=== PATIENT | female | born 1955 | race Caucasian/White ===

== ENCOUNTER → 2023-04-18 06:26 | Day surgery (SDC) | payer MEDICARE, OTHER, SELFPAY | LOC: GI 06:26 | PROVIDERS: ATTENDING PHYSICIAN Internal Medicine | DX: D12.3 Benign neoplasm of transverse colon (principal); K57.30 Diverticulosis of large intestine without perforation or abscess without bleeding; K64.4 Residual hemorrhoidal skin tags; K56.2 Volvulus; R19.7 Diarrhea, unspecified; R13.10 Dysphagia, unspecified; R12 Heartburn; Q39.9 Congenital malformation of esophagus, unspecified; K44.9 Diaphragmatic hernia without obstruction or gangrene; K25.9 Gastric ulcer, unspecified as acute or chronic, without hemorrhage or perforation; K22.2 Esophageal obstruction | CPT/HCPCS: 45380; 45381; 43239; 88305; 88342 ==

== ENCOUNTER → 2023-05-31 13:52 | Outpatient (REF) | payer MEDICARE, OTHER, SELFPAY | LOC: SDSPAT 13:52 | PROVIDERS: ATTENDING PHYSICIAN Surgery; FAMILY PHYSICIAN Family Medicine | DX: A63.0 Anogenital (venereal) warts (principal) | CPT/HCPCS: 36415; 93005 ==

== ENCOUNTER 2023-06-06 06:13 | Day surgery (SDC) | payer MEDICARE, OTHER, SELFPAY ==
[2023-05-31 14:09] VITALS: BMI 32.8
[2023-06-06] VITALS (9 sets, daily range): BP systolic 123–164; BP diastolic 61–99; BMI 32.8
[2023-06-06] MEDS: NORMOSOL-R 1000 IV (06:55)
[2023-06-06] MEDS: ROXICODONE 5 MG PO (10:18)
== END 2023-06-06 10:38 | disposition home or self-care (01) ==
LOC: SDS 06:13
PROVIDERS: ATTENDING PHYSICIAN Surgery; FAMILY PHYSICIAN Family Medicine
DX: A63.0 Anogenital (venereal) warts (principal)
CPT/HCPCS: 46922

== ENCOUNTER 2023-07-26 06:11 | Day surgery (SDC) | payer MEDICARE, OTHER, SELFPAY ==
[2023-07-26 10:39] VITALS: BMI 32.1
[2023-07-26 10:40] VITALS: BMI 32.1
[2023-07-26 10:41] VITALS: BP 147/74
[2023-07-26 13:22] VITALS: BP 130/74
[2023-07-26 13:30] VITALS: BP 147/82
[2023-07-26 13:45] VITALS: BP 163/140
[2023-07-26 13:54] VITALS: BP 161/69
== END 2023-07-26 14:07 | disposition home or self-care (01) ==
LOC: GI 06:11
PROVIDERS: ATTENDING PHYSICIAN Internal Medicine Gastroenterology
DX: D12.2 Benign neoplasm of ascending colon (principal); K64.0 First degree hemorrhoids
CPT/HCPCS: 45390; 45385; 88305

== ENCOUNTER → 2023-08-28 11:22 | Outpatient (REF) | payer MEDICARE, OTHER, SELFPAY ==
[2023-08-28 12:48] LABS: Blood Urea Nitrogen 16 mg/dl (7-17); Calcium 9.4 mg/dl (8.4-10.2); Carbon Dioxide 28 mmol/L (22-30); Chloride 104 mmol/L (98-107); Glucose 91 mg/dl (70-99); Potassium 4.3 mmol/L (3.5-5.1); Sodium 139 mmol/L (135-145); eGFR > 60.00
== END ==
LOC: REG 11:22
PROVIDERS: ATTENDING PHYSICIAN Nurse Practitioner Family; FAMILY PHYSICIAN Family Medicine
DX: K86.2 Cyst of pancreas (principal)
CPT/HCPCS: 36415; 80048

== ENCOUNTER → 2023-09-24 11:36 | Outpatient (REF) | payer MEDICARE, OTHER, SELFPAY | LOC: WDC 11:36 | PROVIDERS: ATTENDING PHYSICIAN Obstetrics & Gynecology Gynecology; FAMILY PHYSICIAN Family Medicine | DX: Z12.31 Encounter for screening mammogram for malignant neoplasm of breast (principal) | CPT/HCPCS: 77063; 77067 ==

== ENCOUNTER 2024-08-18 06:31 | Day surgery (SDC) | payer MEDICARE, OTHER, SELFPAY | END 2024-08-18 13:40 | disposition home or self-care (01) | LOC: GI 06:31 | PROVIDERS: ATTENDING PHYSICIAN Internal Medicine | DX: Z12.11 Encounter for screening for malignant neoplasm of colon (principal); K57.30 Diverticulosis of large intestine without perforation or abscess without bleeding; K64.9 Unspecified hemorrhoids; D12.2 Benign neoplasm of ascending colon; Z98.890 Other specified postprocedural states; Z86.0101 Personal history of adenomatous and serrated colon polyps | CPT/HCPCS: 45380; 88305 ==

== ENCOUNTER → 2024-09-14 15:12 | Outpatient (REF) | payer MEDICARE, OTHER, SELFPAY ==
[2024-09-14 15:46] LABS: Hematocrit 40.8 % (37.0-47.0); Hemoglobin 13.8 g/dL (12.0-16.0); Mean Corp Hgb Conc. 33.8 g/dL (33.0-37.0); Mean Corpuscular Volume 95.1 fL (81.0-99.0); Nucleated Red Blood Cells % 0 %; Platelet Count 194 10^3/uL (130-400); Red Cell Dist. Width 13.0 % (11.5-14.5)
[2024-09-14 16:08] LABS: ALT (SGPT) 16 U/L (0-35); AST (SGOT) 18 U/L (14-36); Albumin 4.3 g/dl (3.5-5.0); Alkaline Phosphatase 80 U/L (38-126); Blood Urea Nitrogen 21 mg/dl (7-17); Calcium 9.3 mg/dl (8.4-10.2); Carbon Dioxide 24 mmol/L (22-30); Chloride 105 mmol/L (98-107); Glucose 107 mg/dl (70-99); HDL Cholesterol 77 mg/dl; LDL Cholesterol, Calculated 156 mg/dl; Potassium 4.5 mmol/L (3.5-5.1); Sodium 136 mmol/L (135-145); Total Protein 6.5 g/dl (6.3-8.2); Very Low Density Lipoprotein 19 mg/dl (0-30); eGFR > 60.00
[2024-09-14 16:37] LABS: TSH 2.99 uIU/ml (0.47-4.68)
[2024-09-16 12:24] LABS: Glycohemoglobin (HgbA1c) 5.4 % (4.0-5.6)
== END ==
LOC: REG 15:12
PROVIDERS: ATTENDING PHYSICIAN Physician Assistant Medical; FAMILY PHYSICIAN Family Medicine
DX: Z00.00 Encounter for general adult medical examination without abnormal findings (principal); E78.2 Mixed hyperlipidemia; I10 Essential (primary) hypertension
CPT/HCPCS: 36415; 80053; 80061; 83036; 84443; 85025

== ENCOUNTER → 2024-09-25 11:15 | Outpatient (REF) | payer MEDICARE, OTHER, SELFPAY ==
[2024-09-25 13:42] LABS: Blood Urea Nitrogen 15 mg/dl (7-17)
== END ==
LOC: REG 11:15
PROVIDERS: ATTENDING PHYSICIAN Physician Assistant Medical
DX: R73.9 Hyperglycemia, unspecified (principal); R89.9 Unspecified abnormal finding in specimens from other organs, systems and tissues
CPT/HCPCS: 36415; 84520

== ENCOUNTER → 2024-11-02 08:31 | Outpatient (REF) | payer MEDICARE, OTHER, SELFPAY | LOC: WDC 08:31 | PROVIDERS: ATTENDING PHYSICIAN Physician Assistant Medical; FAMILY PHYSICIAN Family Medicine | DX: Z12.31 Encounter for screening mammogram for malignant neoplasm of breast (principal) | CPT/HCPCS: 77063; 77067 ==

== ENCOUNTER → 2024-12-08 09:38 | Outpatient (REF) | payer MEDICARE, OTHER, SELFPAY | LOC: RAD 09:38 | PROVIDERS: ATTENDING PHYSICIAN Internal Medicine; FAMILY PHYSICIAN Family Medicine | DX: R14.2 Eructation (principal); K21.9 Gastro-esophageal reflux disease without esophagitis; R13.19 Other dysphagia | CPT/HCPCS: 74221 ==

== ENCOUNTER → 2024-12-14 19:10 | Outpatient (REF) | payer MEDICARE, OTHER, SELFPAY | LOC: MRI 3T 19:10 | PROVIDERS: ATTENDING PHYSICIAN Internal Medicine; FAMILY PHYSICIAN Family Medicine | DX: K86.2 Cyst of pancreas (principal) | CPT/HCPCS: 74183; A9575 ==